=== PATIENT | male | born 1985 | race Caucasian/White ===

== ENCOUNTER 2021-04-13 19:12 | Emergency (ER) | payer BC, SELFPAY ==
[2021-04-13 19:18] VITALS: BP 144/89; PULSE 128; RESP 20; TEMP 38.7; O2SAT 99
--- NOTE | 2021-04-13 19:31 | ED.URI ---
HPI - URI/Sore Throat General Chief Complaint: Upper Respiratory Infection Stated Complaint: body aches/sob/cant taste Time Seen by Provider: 04/13/21 19:13 Source: patient Mode of arrival: ambulatory Limitations: no limitations History of Present Illness HPI Narrative: 36-year-old male presents to [facility] with complaints of body aches, chills, fevers up to 103, headache, mild dry cough, shortness of breath, fatigue and nausea since yesterday. Patient has not received his Covid vaccine. Patient has not take any ibuprofen since 7:30 AM today. Patient denies sick contacts. Patient denies vomiting, diarrhea or wheezing. MD elicited complaint: fever, cough, sore throat, rhinorrhea, nasal congestion and sinus pain Onset (ago): day(s) (1) Able to tolerate fluids by mouth: Yes Exacerbating factors: nothing Relieving factors: nothing Treatments prior to arrival: ibuprofen Related Data Allergies Allergy/AdvReac Type Severity Reaction Status Date / Time No Known Allergies Allergy Verified 12/04/19 09:06 Review of Systems Constitutional: Constitutional: Reports chills, Reports fatigue and Reports fever(s) ENT: Reports nasal congestion Cardiovascular: Cardiovascular: Denies chest pain, Denies rapid heart rate, Denies radiating jaw, neck or arm pain and Denies slow heart rate Respiratory: Respiratory: Denies chest congestion, Reports cough, Reports dyspnea and Denies wheezing Gastrointestinal: Gastrointestinal: Denies abdominal pain, Denies constipation, Denies diarrhea, Reports nausea and Denies vomiting Integumentary/Breasts: Skin/Breast: Denies rash PMFSH Past Medical History Medical History Tobacco use Family History Family History Father Hypertension Grandparent Hypertension Cerebrovascular accident Mother Family history of rheumatoid arthritis Social History Social History Smoking status: Heavy tobacco smoker Alcohol intake: current Comments At time of signature, I agree with nursing past medical, surgical, social and family history. There is no relevant family history pertinent to the presenting complaint. Exam Const: General: ill appearing Nutritional Appearance: well nourished Orientation/consciousness: patient oriented x3 HENMT: Head: normal to inspection Ears: TM's normal bilaterally and EAC's normal Mouth: Yes Normal oral and palatal mucosa present, Yes lip normal and Yes moist mucous membranes Throat: posterior oropharynx normal and uvula midline Neck: Neck: normal visual inspection Chest: Chest palpation & inspection: normal inspection of the chest Resp: Effort & Inspection: normal respiratory effort, not labored, not tachypneic and no use of accessory muscles Auscultation: clear to auscultation bilaterally and no wheezes Cardio: Rate: tachycardic Rhythm: regular rhythm Heart sounds: no murmurs Skin: General skin exam: normal color Rashes: no rashes Wounds: no wounds Neuro: General: patient oriented x3, moves all extremities and no meningeal signs Extrem: General: normal to inspection Psych: Appearance: grossly normal Mental Status: mental status grossly normal Affect: normal affect Attitude: cooperative Thought content: Yes Normal thought content present Course Vital Signs Vital signs: Vital Signs Temperature 38.7 C H 04/13/21 19:18 Pulse Rate 128 H 04/13/21 19:18 Respiratory Rate 20 04/13/21 19:18 Blood Pressure 144/89 H 04/13/21 19:18 Pulse Oximetry 99 04/13/21 19:18 Temperature 38.7 C H 04/13/21 19:18 Pulse Rate 128 H 04/13/21 19:18 Respiratory Rate 20 04/13/21 19:18 Blood Pressure 144/89 H 04/13/21 19:18 Pulse Oximetry 99 04/13/21 19:18 MDM - URI/Sore Throat MDM Narrative Medical decision making narrative: Patient understand that his symptoms likely represents Covid. Due to symptoms starting 1 day ago, no rapid te
--- NOTE | 2021-04-13 19:45 | PC.NURSE ---
Unable to scan tylenol as it was ordered incorrectly by provider. No ordered as a one time med. Was given at 1940.
[2021-04-15 15:39] LABS: SARS-CoV-2 RNA PCR Negative
== END 2021-04-13 19:53 | disposition home or self-care (01) ==
PROVIDERS: Emergency Provider Nurse Practitioner Family
DX: J06.9 Acute upper respiratory infection, unspecified (principal); Z20.822 Contact with and (suspected) exposure to COVID-19; F17.200 Nicotine dependence, unspecified, uncomplicated
CPT/HCPCS: 87804; 99213; C9803; G0463; U0003; U0005